=== PATIENT | female | born 1965 | race Caucasian/White ===

== ENCOUNTER 2016-11-14 17:46 | Emergency (ER) | payer OTHER ==
[~2016-11-14] VITALS: Ht 170.2 cm; Wt 108.1 kg
[~2016-11-14 17:46] MED LIST: CLARITIN,ALAVAR10 MG PO; COPAXONE40 MG/1 ML SC; PROVIGIL100 MG PO; PROZAC40 MG PO
[2016-11-14] MEDS ORDERED: ULTRAM50 MG PO (19:52)
[2016-11-14] MEDS ORDERED: MOBIC7.5 MG PO (19:56)
[2016-11-14 20:32] VITALS: BP 111/69
== END 2016-11-14 20:34 | disposition home or self-care (01) ==
LOC: EME 17:46
DX: M25.562 Pain in left knee (principal)
CPT/HCPCS: 73564; 99281; 99284